=== PATIENT | female | born 1940 | race Caucasian/White ===

== ENCOUNTER 2023-09-12 08:37 | Emergency (ER) | payer MEDICARE, BC, SELFPAY ==
--- NOTE | ~2023-09-12 | XR_ITS ---
EXAMINATION: XR hip LT 2V w AP pelvis INDICATION: Left hip pain TECHNIQUE: AP view of the pelvis and two views of the left hip are obtained. COMPARISON: None available FINDINGS: Bone alignment is normal. No fracture is identified. There is moderate osteoarthritis of th e hips. Calcified atherosclerosis is noted. There are partially imaged changes of lumbar fusion. IMPRESSION: 1. Moderate osteoarthritis of the hips without acute osseous abnormality. Reviewed, dictated and finalized at location B. [facility] PROFESSOR OF THEOLOGY
[2023-09-12 08:52] VITALS: BP 159/52; PULSE 58; RESP 16; TEMP 36.5; O2SAT 100
[2023-09-12 08:53] VITALS: BP 159/52; PULSE 58; RESP 16; TEMP 36.5; O2SAT 100
--- NOTE | 2023-09-12 08:54 | ED.GENADULT ---
HPI - General Adult General Chief complaint: Back Pain/Injury Stated complaint: FALL/HEAD INJURY/BACK INJURY Time Seen by Provider: 09/12/23 08:55 Source: patient Mode of arrival: ambulatory Limitations: no limitations History of Present Illness HPI narrative: 83-year-old female presented for complaint of left posterior hip pain for 2 days. Patient states it started when she bent over when attempting to put on her shoe. However she endorses a fall 6 days ago. At that time she denied hip pain when she was seen in an ER, and was only treated for head injury and concussion. Pain is sharp and hip feels tender; better when at rest, rates 9/10 when walking. Walking slowly without assistive device. Patient also reports bilateral knee pain and bruising, stating she landed on her knees. Taking Tylenol with improvement. Denies pain radiating into the legs, numbness, tingling, weakness of the lower extremities, saddle paresthesia or loss of bowel or bladder. Related Data Home Medications Medication Instructions Recorded Confirmed amlodipine 5 mg tablet 5 mg PO DAILY 10/30/19 09/12/23 celecoxib 200 mg capsule 200 mg PO DAILY 10/30/19 09/12/23 losartan 100 mg tablet 100 mg PO DAILY 10/30/19 09/12/23 Allergies Allergy/AdvReac Type Severity Reaction Status Date / Time gabapentin Allergy Confusion Verified 09/12/23 08:51 Review of Systems Review of Systems: CONSTITUTIONAL: Denies body aches, fever, chills EYES: Denies visual changes ENT: Denies rhinorrhea, congestion CARDIOVASCULAR: Denies chest pain, palpitations, or edema. RESPIRATORY: Denies cough or dyspnea. GASTROINTESTINAL: Denies abdominal pain, nausea, vomiting, or diarrhea. SKIN: Denies rash, itching, or wounds. MUSCULOSKELETAL: reports joint pains Denies back pain, neck pain, or myalgia. NEUROLOGIC: Denies headache, numbness, tingling, or weakness. All systems reviewed & are unremarkable except as noted in HPI and below PMFSH Past Medical History Medical History Arthritis Chronic back pain Stenosis GERD (gastroesophageal reflux disease) Hypertension Postmenopausal Surgical History Surgical History H/O: hysterectomy History of appendectomy History of bilateral knee replacement Hx of cholecystectomy Hx of tonsillectomy Comments At time of signature, I have reviewed and agree with nursing past medical, surgical, social and family history unless otherwise noted. Please see nursing chart for further information. There is no relevant family history pertinent to the presenting complaint Exam Narrative: GENERAL: appears in pain, and in no acute distress. CHEST: Speaks in full sentences. No respiratory distress. HEART: Regular rate and rhythm. Normal and equal peripheral pulses. EXTREMITIES: Left posterior and anterior hip tenderness with palpation; LLE has normal strength and sensation when compared to RLE, slightly limited range of motion at hip endorses pain with movement. No ecchymosis, No open wounds, or obvious deformity; alignment normal, pulse palpable and equal bilaterally, skin warm, dry, pink. Capillary refill less than 3 seconds. Gait slow, guarding hip. SKIN: Warm, dry, no rash to hip NEURO: Alert and oriented x3. PSYCH: Normal mood and affect Extrem: Upper/lower leg/hip images: 1. location of left hip pain 2. location of hip pain Course Course Emergency Course: Patient is aware of diagnosis, understands and agrees to treatment plan. Anticipatory guidance given. Patient agrees to follow-up as directed and is aware of reasons to seek care at the emergency department. Portions of this record may have been created with voice recognition software Level of Care: Express Care Visit Vital Signs Vital signs: Vital Signs Temperature 97.7 F 09/12/23 08:52 Pulse Rate 58 L 09/12/23 08:52 Respiratory Rate 16
== END 2023-09-12 09:43 | disposition home or self-care (01) ==
PROVIDERS: Emergency Provider Nurse Practitioner Family
DX: M25.552 Pain in left hip (principal); M19.90 Unspecified osteoarthritis, unspecified site; M48.00 Spinal stenosis, site unspecified; G21.9 Secondary parkinsonism, unspecified; I10 Essential (primary) hypertension; Z96.653 Presence of artificial knee joint, bilateral
CPT/HCPCS: 73502; 99213; G0463

== ENCOUNTER 2024-03-11 14:40 | Emergency (ER) | payer MEDICARE, BC, SELFPAY ==
[2024-03-11 14:51] VITALS: BP 166/71; PULSE 66; RESP 16; TEMP 37.1; O2SAT 100
[2024-03-11 14:54] VITALS: BP 166/71; PULSE 66; RESP 16; TEMP 37.1; O2SAT 100
--- NOTE | 2024-03-11 15:05 | ED.GENADULT ---
HPI - General Adult General Chief complaint: Extremity Problem,Nontraumatic Stated complaint: Left Leg Pain Time Seen by Provider: 03/11/24 15:00 Source: patient, RN notes reviewed and old records reviewed Mode of arrival: ambulatory Limitations: no limitations History of Present Illness HPI narrative: 83-year-old female to Express Care for complaint of left calf pain with sudden onset this morning. Patient describes pain as sharp intermittent but becoming more consistent throughout the day. Patient denies injury or recent activity that could have contributed to pain. Patient does endorse that she was in a car for an extended period time yesterday. Patient denies chest pain, shortness of breath, numbness, tingling, weakness. Patient in no acute distress. Related Data Home Medications Medication Instructions Recorded Confirmed amlodipine 5 mg tablet 5 mg PO DAILY 10/30/19 03/11/24 celecoxib 200 mg capsule 200 mg PO DAILY 10/30/19 03/11/24 losartan 100 mg tablet 100 mg PO DAILY 10/30/19 03/11/24 cholecalciferol (vitamin D3) 25 25 mcg PO DAILY 03/11/24 03/11/24 mcg (1,000 unit) capsule (Vitamin D3) magnesium 250 mg tablet 250 mg PO DAILY 03/11/24 03/11/24 vitamin B complex 1 tablet PO DAILY 03/11/24 03/11/24 Allergies Allergy/AdvReac Type Severity Reaction Status Date / Time gabapentin Allergy Confusion Verified 03/11/24 16:59 Review of Systems Review of Systems: All systems reviewed & are unremarkable except as noted in HPI and below Constitutional: Constitutional: Reports as per HPI, Denies fatigue and Denies fever(s) Eyes: Eyes: Reports no additional eye complaints ENT: Reports system reviewed and no additional complaints, except as documented Cardiovascular: Cardiovascular: Reports no additional cardiovascular complaints, Denies chest pain and Denies dyspnea Respiratory: Respiratory: Reports no additional respiratory complaints, Denies cough and Denies dyspnea Musculoskeletal: Musculoskeletal: Reports as per HPI, Denies arthralgias, Denies joint swelling, Denies numbness, Denies stiffness, Denies tingling and Reports other (left calf pain) Neurologic: Reports system reviewed and no additional complaints, except as documented Psychiatric: Psychiatric: Reports no additional psychiatric complaints PMFSH Past Medical History Medical History Arthritis Chronic back pain Stenosis GERD (gastroesophageal reflux disease) Hypertension Postmenopausal Surgical History Surgical History H/O: hysterectomy History of appendectomy History of bilateral knee replacement Hx of cholecystectomy Hx of tonsillectomy Social History Social History Smoking status: Never smoker Comments At the time of my signature, I reviewed and agree with the nursing past medical, surgical, social, and family history. There is no relevant family history pertinent to the patient complaint. Exam Const: General: cooperative, healthy appearing, no acute distress, alert, uncomfortable, well groomed and well nourished Nutritional Appearance: well nourished Orientation/consciousness: patient oriented x3 Limitations: no limitations HENMT: Head: normal to inspection Ears: external ears normal Face/Nose/Sinus: Normal external nose present, Normal nares present, normal facial exam, No erythema and No edema Face and sinus: normal facial exam, no erythema and no edema Mouth: Yes Normal oral and palatal mucosa present Eyes: General: appearance normal, both eyes and all related structures Neck: Neck: normal visual inspection, full ROM and no meningeal signs Lymphatic: no lymphadenopathy noted and no lymphedema noted Chest: Chest palpation & inspection: normal inspection of the chest Resp: Effort & Inspection: normal respiratory effort and able to spe
== END 2024-03-11 15:28 | disposition short-term general hospital (02) ==
PROVIDERS: Emergency Provider Nurse Practitioner Family
DX: M79.662 Pain in left lower leg (principal); K21.9 Gastro-esophageal reflux disease without esophagitis; I10 Essential (primary) hypertension
CPT/HCPCS: 99212; G0463

== ENCOUNTER 2024-03-11 15:49 | Emergency (ER) | payer MEDICARE, BC, SELFPAY ==
--- NOTE | ~2024-03-11 | US_ITS ---
EXAMINATION: US venous doppler [facility] DATE: 03/11/2024 17:22 INDICATION: Left lower limb pain. TECHNIQUE: Grayscale ultrasound images without and with compression and Doppler ultrasound images of the left lower extremity veins were obtained. COMPARISON: None. FINDINGS: The visualized portions of left common femoral vein, profunda (deep) femoral vein, femoral vein, popl iteal vein, peroneal veins, posterior tibial veins, and greater saphenous vein outflow are patent. IMPRESSION: 1. No deep venous thrombosis. Reviewed, dictated and finalized at location A.
[2024-03-11 16:06] VITALS: BP 156/61; PULSE 69; RESP 18; TEMP 36.2; O2SAT 100
--- NOTE | 2024-03-11 16:19 | ED.GENADULT ---
HPI - General Adult General Chief complaint: Extremity Problem,Nontraumatic <Lili Salazar March, ONLINE MEDIA DIRECTOR - Last Filed: 03/11/24 16:22> Stated complaint: dvt rule out <Lili Salazar March, ONLINE MEDIA DIRECTOR - Last Filed: 03/11/24 16:22> Time Seen by Provider: 03/11/24 16:19 <Lili Salazar March, ONLINE MEDIA DIRECTOR - Last Filed: 03/11/24 16:22> Focused HPI: Antonio Cee is an 83 y/o female who presents with complaints of left stabbing calf pain for a couple weeks off and on. She went to an and was sent here to get r/o for a DVT Left leg might have mild swelling/ warm to tough slight erythema GENERAL: Well-appearing, well-nourished, and in no acute distress. HEAD: Normocephalic, atraumatic. CHEST: Clear to auscultation. ?No respiratory distress. HEART: Regular rate and rhythm.? NEURO: ?Alert and oriented x3. Patient screened in triage and initial orders placed.? ?Additional care and disposition to be based upon?diagnostic testing and treatment. <Lili Salazar March, ONLINE MEDIA DIRECTOR - Last Filed: 03/11/24 16:22> Focused HPI: Antonio Cee is an 83 y/o female who presents with complaints of left stabbing calf pain for a couple weeks off and on. She went to an and was sent here to get r/o for a DVT GENERAL: Well-appearing, well-nourished, and in no acute distress. HEAD: Normocephalic, atraumatic. CHEST: Clear to auscultation. ?No respiratory distress. HEART: Regular rate and rhythm.? NEURO: ?Alert and oriented x3. Patient screened in triage and initial orders placed.? ?Additional care and disposition to be based upon?diagnostic testing and treatment. <Lizbeth Miramontes PA-C - Last Filed: 03/11/24 17:50> Related Data Home medications: Home Medications Medication Instructions Recorded Confirmed amlodipine 5 mg tablet 5 mg PO DAILY 10/30/19 03/11/24 celecoxib 200 mg capsule 200 mg PO DAILY 10/30/19 03/11/24 losartan 100 mg tablet 100 mg PO DAILY 10/30/19 03/11/24 cholecalciferol (vitamin D3) 25 25 mcg PO DAILY 03/11/24 03/11/24 mcg (1,000 unit) capsule (Vitamin D3) magnesium 250 mg tablet 250 mg PO DAILY 03/11/24 03/11/24 vitamin B complex 1 tablet PO DAILY 03/11/24 03/11/24 <Lili Sinclair - Last Filed: 03/11/24 16:22> Allergies/adverse reactions: Allergies Allergy/AdvReac Type Severity Reaction Status Date / Time gabapentin Allergy Confusion Verified 03/11/24 16:59 <Lili Salazar March - Last Filed: 03/11/24 16:22> Review of Systems Review of Systems: CONSTITUTIONAL: Denies fever SKIN: Denies rash MUSCULOSKELETAL: Reports myalgia. NEUROLOGIC: Denies numbness <Lizbeth Miramontes PA-C - Last Filed: 03/11/24 17:50> All systems reviewed & are unremarkable except as noted in HPI and below <Lizbeth Miramontes PA-C - Last Filed: 03/11/24 17:50> PMFSH Past Medical History Medical History: Medical History Arthritis Chronic back pain Stenosis GERD (gastroesophageal reflux disease) Hypertension Postmenopausal <Lili Sinclair - Last Filed: 03/11/24 16:22> Surgical History Surgical History: Surgical History H/O: hysterectomy History of appendectomy History of bilateral knee replacement Hx of cholecystectomy Hx of tonsillectomy <Lili Sinclair - Last Filed: 03/11/24 16:22> Social History Social History: Social History Smoking status: Never smoker <Lili Sinclair - Last Filed: 03/11/24 16:22> Exam Narrative: GENERAL: Well-appearing, well-nourished, and in no acute distress. HEAD: Normocephalic, atraumatic. EYES: EOMI. EXTREMITIES: Normal range of motion. No edema, warmth or erythema. Normal DP pulse. Normal sensation SKIN: Warm, dry, no rash. NEURO: No focal deficits. Alert and oriented x3. PSYCH: Normal mood and affect <Lizbeth Miramontes PA-C - Last Filed: 03/11/24 17:50> Course Course Emergency Co
[2024-03-11 17:09] LABS: Basophils Absolute Auto 0.1 K/mm3 (0.0-0.1); Eosinophils Absolute Auto 0.2 K/mm3 (0-0.3); Eosinophils Percent Auto 2.1 % (0-4.4); Hematocrit 45.6 % (37.0-47.0); Hemoglobin 14.5 g/dL (12.0-15.0); Immature Granulocyte Absolute 0.06 K/mm3 (0.00-0.031); Immature Granulocyte Percent A 0.7 % (0-0.5); Lymphocytes Absolute Auto 1.43 K/mm3 (0.9-3.2); Lymphocytes Percent Auto 17.5 % (18.3-44.2); Mean Corpuscular HGB Conc 31.8 g/dl (32-36); Mean Corpuscular Hemoglobin 29.7 pg (26-34); Mean Corpuscular Volume 93.4 fl (80-100); Monocytes Percent Auto 12.1 % (2.6-8.5); Neutrophils Absolute Auto 5.4 K/mm3 (1.3-6.7); Neutrophils Percent Auto 66.6 % (45.5-73.1); Platelet Count Result 289 k/mm3 (150-375); Red Blood Count 4.88 M/mm3 (4.2-5.4); Red Cell Distribution Width 14.8 % (11.5-14.5); White Blood Count 8.2 K/mm3 (4.5-10.0)
[2024-03-11 17:18] LABS: Anion Gap 6 mmol/L (4-12); Blood Urea Nitrogen 21 mg/dL (7-17); Carbon Dioxide 27 mmol/L (22-30); Chloride 106 mmol/L (98-107); Estimated CRCL calculation 34 ml/min; Estimated Glomerular Filt Rate 53; Glucose 100 mg/dL (65-110); Potassium 4.2 mmol/L (3.4-5.0); Sodium 139 mmol/L (137-145)
[2024-03-11 17:25] LABS: INR 0.9; Prothrombin Time 12.8 Seconds (11.1-14.7)
[2024-03-11 17:48] LABS: Magnesium 2.2 mg/dL (1.6-2.3)
== END 2024-03-11 18:19 | disposition home or self-care (01) ==
PROVIDERS: Nurse Practitioner Family; Emergency Provider Physician Assistant
DX: M79.662 Pain in left lower leg (principal); I10 Essential (primary) hypertension; M19.90 Unspecified osteoarthritis, unspecified site; K21.9 Gastro-esophageal reflux disease without esophagitis; Z96.653 Presence of artificial knee joint, bilateral; Z90.710 Acquired absence of both cervix and uterus; Z90.49 Acquired absence of other specified parts of digestive tract
CPT/HCPCS: 36415; 80048; 83735; 85025; 85610; 85730; 93971; 99284

== ENCOUNTER 2024-08-07 12:55 | Emergency (ER) | payer MEDICARE, BC, SELFPAY ==
--- NOTE | 2024-08-07 13:48 | ED.SKABFB ---
HPI - Skin/Abscess/Foreign Bdy General Chief complaint: Skin/Abscess/Foreign Body Stated complaint: sores on legs/buttock Time Seen by Provider: 08/07/24 14:19 Source: patient, RN notes reviewed and old records reviewed Mode of arrival: ambulatory Limitations: no limitations History of Present Illness HPI narrative: 84-year-old female to Express Care with complaint of painful, erythematous rash to buttocks for 1 month and bilateral knees for 2 weeks. Patient has attempted to treat at home with [id number] products including psoriasis creams and wearing depends. Patient endorses worsening symptoms. patient denies fever, body aches, nausea, GI changes, urinary changes, pertinent medical history. Patient resting comfortably in exam room in no acute distress. Related Data Home Medications Medication Instructions Recorded Confirmed amlodipine 5 mg tablet 5 mg PO DAILY 10/30/19 08/07/24 celecoxib 200 mg capsule 200 mg PO DAILY 10/30/19 08/07/24 losartan 100 mg tablet 100 mg PO DAILY 10/30/19 08/07/24 cholecalciferol (vitamin D3) 25 25 mcg PO DAILY 03/11/24 08/07/24 mcg (1,000 unit) capsule (Vitamin D3) magnesium 250 mg tablet 250 mg PO DAILY 03/11/24 08/07/24 vitamin B complex 1 tablet PO DAILY 03/11/24 08/07/24 Allergies Allergy/AdvReac Type Severity Reaction Status Date / Time gabapentin Allergy Confusion Verified 08/07/24 13:59 Review of Systems Review of Systems: All systems reviewed & are unremarkable except as noted in HPI and below Constitutional: Constitutional: Reports no additional constitutional complaints Eyes: Eyes: Reports no additional eye complaints ENT: Reports system reviewed and no additional complaints, except as documented Cardiovascular: Cardiovascular: Reports no additional cardiovascular complaints, Denies chest pain and Denies dyspnea Respiratory: Respiratory: Reports no additional respiratory complaints, Denies cough and Denies dyspnea Musculoskeletal: Musculoskeletal: Reports no additional musculoskeletal complaints Integumentary/Breasts: Skin/Breast: Reports as per HPI, Reports erythema, Reports rash and Reports skin swelling Neurologic: Reports system reviewed and no additional complaints, except as documented Psychiatric: Psychiatric: Reports no additional psychiatric complaints PMFSH Past Medical History Medical History Arthritis Chronic back pain Stenosis GERD (gastroesophageal reflux disease) Hypertension Postmenopausal Surgical History Surgical History H/O: hysterectomy History of appendectomy History of bilateral knee replacement Hx of cholecystectomy Hx of tonsillectomy Social History Social History Smoking status: Never smoker Comments At the time of my signature, I reviewed and agree with the nursing past medical, surgical, social, and family history. There is no relevant family history pertinent to the patient complaint. Exam Const: General: cooperative, healthy appearing, no acute distress, well developed, alert, uncomfortable, well groomed and well nourished Nutritional Appearance: well nourished Orientation/consciousness: patient oriented x3 Limitations: no limitations HENMT: Head: normal to inspection Ears: external ears normal Face/Nose/Sinus: Normal external nose present, Normal nares present, normal facial exam, No erythema and No edema Face and sinus: normal facial exam, no erythema and no edema Mouth: Yes Normal oral and palatal mucosa present Eyes: General: appearance normal, both eyes and all related structures Neck: Neck: normal visual inspection, full ROM and no meningeal signs Chest: Chest palpation & inspection: normal inspection of the chest Resp: Effort & Inspection: normal respiratory effort and able to speak in complete sentences Cardio
[2024-08-07 14:04] VITALS: BP 188/54; PULSE 67; RESP 16; TEMP 36.8; O2SAT 100
== END 2024-08-07 14:39 | disposition home or self-care (01) ==
PROVIDERS: Emergency Provider Nurse Practitioner Family
DX: B37.9 Candidiasis, unspecified (principal); K21.9 Gastro-esophageal reflux disease without esophagitis; I10 Essential (primary) hypertension; Z90.710 Acquired absence of both cervix and uterus; Z96.653 Presence of artificial knee joint, bilateral
CPT/HCPCS: 99213; G0463